=== PATIENT | female | born 1935 | race Caucasian/White ===

== ENCOUNTER 2016-09-27 21:28 | Observation (INO) ==
[2016-09-27] MEDS ORDERED: INSULIN LISPRO 1 UNIT/0.01 ML UNIT SQ ONE ×2 (21:49→23:23)
[2016-09-27] MEDS ORDERED: ONDANSETRON 4 MG/2 ML VIAL IV ONE (21:50)
[2016-09-27] MEDS ORDERED: 0.9 % SODIUM CHLORIDE 1,000 ML IV ONE (21:50)
[2016-09-27 22:44] LABS: Basophils # (Auto) 0 K/mcL (0.0-0.3); Basophils % (Auto) 0.9 % (0.0-2.0); Eosinophils # (Auto) 0.1 K/mcL (0.0-0.7); Granulocytes % (Auto) 53.4 % (38.0-78.0); Lymphocytes # (Auto) 0.9 K/mcL (1.5-4.8); Lymphocytes % (Auto) 28.6 % (15.5-49.0); Mean Cell Volume 103.1 fL (80.0-100.0); Mean Corpuscular HGB Conc 33.8 g/dL (31.0-36.0); Mean Corpuscular Hemoglobin 34.9 pg (26.0-34.0); Monocytes # (Auto) 0.4 K/mcL (0.1-0.9); Monocytes % (Auto) 13.1 % (1.0-12.0); Platelet Count 127 K/mcL (140-440); RBC 2.79 M/mcL (4.00-5.20); Red Cell Distribution Width 15.3 % (11.5-14.5)
[2016-09-27 22:57] LABS: ALT/SGPT 19 U/l (0-40); Albumin 3.4 gm/dL (3.2-5.2); Albumin/Globulin Ratio 0.9 (1.0-2.3); Alkaline Phosphatase 108 U/L (39-117); Amylase 92 U/L (28-100); Blood Urea Nitrogen 25 mg/dl (8-23); Lipase 130 U/L (7-60)
[2016-09-28] MEDS ORDERED: INSULIN LISPRO 1 UNIT/0.01 ML UNIT SQ ONE ×3 (00:24→21:44)
[2016-09-28] MEDS ORDERED: cefTRIAXone 1 GM VIAL IM ONE (01:18)
--- NOTE | 2016-09-28 01:54 | Emergency Department Note ---
General Adult HPI - General Chief complaint: Blood Sugar Problem Stated complaint: Elevated Blood Sugar Time Seen by Provider: 09/27/16 21:48 Source: patient, old records reviewed Mode of arrival: wheelchair Limitations: no limitations - History of Present Illness HPI Narrative: 81-year-old female sent over from [facility] for a fingerstick blood sugar over 500. It was 395 after 20 units of Lantus and 44 units of Humalog with dinner. Denies dysuria or shortness of breath fever chills nausea vomiting diarrhea. Patient has baseline dementia and is slow speech but is able to give me some reasonable history and review of systems - Related Data Home Medications Medication Instructions Recorded Confirmed Pantoprazole [Protonix] 40 mg PO BID 04/25/15 09/28/16 Acetaminophen [Tylenol] 325 mg PO Q6HP PRN 04/26/15 09/28/16 Bisacodyl [Dulcolax] 10 mg GA DAILYP PRN 04/26/15 09/28/16 Docusate Sodium [Stool Softener] 100 mg PO DAILY 04/26/15 09/28/16 clopidogrel 75 mg tablet 75 mg PO QDAY tab 07/04/15 09/28/16 rosuvastatin 20 mg tablet 20 mg PO .QOD tab 07/04/15 09/28/16 venlafaxine ER 150 mg 150 mg PO QAM 07/04/15 09/28/16 capsule,extended release 24 hr Carvedilol [Coreg] 25 mg PO BID 04/09/16 09/28/16 Erythromycin Ophth Oint [Ilotycin 1 dose LEFT EYE TID 04/09/16 09/28/16 Ophth Oint] Ferrous Sulfate [Feosol] 325 mg PO DAILY 04/09/16 09/28/16 Furosemide [Lasix] 20 mg PO DAILY 04/09/16 09/28/16 Ipratropium/Albuterol [Duoneb] 3 mg IH QIDP PRN 04/09/16 09/28/16 Losartan [Cozaar] 50 mg PO DAILY 04/09/16 09/28/16 Nitrofurantoin Sr [Macrobid] 100 mg PO DAILY 04/09/16 09/28/16 Peg 400/Hypromellose/Glycerin 15 ml OP PRN PRN 04/09/16 09/28/16 [Artificial Tears Drops] hydrALAZINE [Apresoline] 10 mg PO DAILYP PRN 04/09/16 09/28/16 sitaGLIPtin [Januvia] 50 mg PO DAILY 04/09/16 09/28/16 Magnesium Hydroxide [Milk of 30 ml PO PRN PRN 04/18/16 09/28/16 Magnesia] Na Phos,M-B/Na Phos,Di-Ba [Fleets 1 dose GA PRN PRN MDD 1 04/18/16 09/28/16 Adult] Spironolactone [Aldactone] 25 mg PO DAILY 09/28/16 09/28/16 Previous Rx's Medication Instructions Recorded Ezetimibe [Zetia] 10 mg PO DAILY 30 Days 05/02/15 Acetaminophen [Tylenol] 650 mg PO Q4-6HP PRN #0 tablet 04/14/16 tramadol 50 mg tablet 50 mg PO Q6H PRN #60 tab 04/21/16 insulin glargine 100 unit/mL See Label Instructions SUB-Q 09/25/16 subcutaneous solution .COMPLEX #1 ml insulin lispro 100 unit/mL See Label Instructions SUB-Q .QAC 09/25/16 subcutaneous solution #1 ml Allergies Allergy/AdvReac Type Severity Reaction Status Date / Time ciprofloxacin Allergy Unknown Unknown Verified 08/27/16 12:42 Latex, Natural Rubber Allergy Unknown Unknown Verified 08/27/16 12:42 shellfish derived Allergy Unknown Unknown Verified 08/27/16 12:42 Review of Systems All systems ED: reviewed and negative except as stated. Past Medical History - Past Medical History Attestation: Yes: The following information was validated with the patient. Medical history: Reports: coronary artery disease, CVA, dementia, diabetes, GI bleed, hyperlipidemia, hypertension, osteoporosis, renal disease, other Surgical history ED: Reports: appendectomy, tonsillectomy, other - Social History smoking status: Never smoker Alcohol use: Reports: None Drug use: Reports: none Physical Exam Normocephalic atraumatic. Conjunctiva clear sclerae white and anicteric. No nasal discharge or congestion. Oropharynx is pink and moist. Neck is supple without lymphadenopathy or thyromegaly. Heart is regular rate and rhythm no murmurs appreciated. Lungs are clear to auscultation bilaterally without wheezes rales rhonchi or respiratory distress. Abdomen soft nontender nondistended. No peritoneal signs or guarding. +2 pedal edema bilaterally with chronic venous stasis changes. Posterior radial pulse. She is alert and oriented however very slow speech. Reasonable historian, however it is not clear whether she is fully aware of her surroundings or what is going on. - General Limitations: no limitations Course Vital Signs Temperature 97.8 F 09/27/16 21:29 Pulse Rate 53 L 09/27/16 21:29 Respiratory Rate 16 09/27/16 21:29 Blood Pressure 137/64 09/27/16 21:29 Pulse Oximetry (%) 95 09/27/16 21:29 Temperature 97.8 F 09/27/16 21:29 Pulse Rate 51 L 09/28/16 02:55 Respiratory Rate 20 09/28/16 02:55 Blood Pressure 155/66 09/28/16 02:55 Pulse Oximetry (%) 100 09/28/16 02:55 Medical Decision Making - Lab Data Lab results reviewed: Yes I reviewed the patient's lab results. Result diagrams: 09/27/16 22:00 09/27/16 22:00 Lab Results 09/27/16 09/27/16 Range/Units 22:00 22:00 WBC 3.0 L (4.5-11.0) K/mcL RBC 2.79 L (4.00-5.20) M/mcL Hgb 9.7 L (12.0-15.0) g/dL Hct 28.7 L (36.0-48.0) % MCV 103.1 H (80.0-100.0) fL MCH 34.9 H (26.0-34.0) pg MCHC 33.8 (31.0-36.0) g/dL RDW 15.3 H (11.5-14.5) % Plt Count 127 L (140-440) K/mcL MPV 7.6 (7.4-10.4) fL Gran % 53.4 (38.0-78.0) % Lymph % (Auto) 28.6 (15.5-49.0) % Sherman % (Auto) 13.1 H (1.0-12.0) % Eos % (Auto) 4.0 (0.0-7.0) % Baso % (Auto) 0.9 (0.0-2.0) % Gran # 1.6 L (1.8-8.0) K/mcL Lymph # 0.9 L (1.5-4.8) K/mcL Sherman # 0.4 (0.1-0.9) K/mcL Eos # 0.1 (0.0-0.7) K/mcL Baso # 0 (0.0-0.3) K/mcL Sodium 138 (133-145) mmol/L Potassium 4.9 (3.3-5.1) mmol/L Chloride 101 (96-108) mmol/L Carbon Dioxide 24 (22-30) mmol/L Anion Gap 13.0 (8-16) BUN 25 H (8-23) mg/dl Creatinine 1.2 H (0.6-1.1) mg/dl GFR Calculation 43 Glucose 384 H (70-105) mg/dL Calcium 9.1 (8.6-10.4) mg/dl Total Bilirubin 0.5 (0.0-1.0) mg/dL AST 33 (0-37) U/l ALT 19 (0-40) U/l Alkaline Phosphatase 108 (39-117) U/L Total Protein 7.3 (5.9-8.4) gm/dL Albumin 3.4 (3.2-5.2) gm/dL Globulin 3.9 H (2.2-3.7) gm/dL Albumin/Globulin Ratio 0.9 L (1.0-2.3) Amylase 92 (28-100) U/L Lipase 130 H (7-60) U/L urinalysis dipstick [id number] shows large amount of leukocytes positive nitrites and small amount of blood. 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 So initially we treated her with 10 units of insulin subcutaneous and orally rehydrated. Repeat blood sugars were still in the 300s so we gave her another 7 units. On recheck she was still elevated and we gave her 10 more. Laboratory shows chronic pancytopenia. Additionally she has mild pancreatitis and a UTI. She is given Rocephin as she is allergic to fluoroquinolones. As we are unable to get her blood sugars under control he was felt she needed to come into the hospital for IV hydration, antibiotics and aggressive insulin management of hyperglycemia. I discussed her case with Dr. adhikari who agreed to accept the patient Disposition: Xfer As Inpt ([facility]) Condition: Fair
[2016-09-28] MEDS ORDERED: 0.9 % SODIUM CHLORIDE 1,000 ML IV ONE (03:38)
[2016-09-28] MEDS ORDERED: IPRATROPIUM/ALBUTEROL 3 ML AMPUL.NEB NEB PRN ×2 (03:38→12:11)
[2016-09-28] MEDS ORDERED: DEXTROSE 50% 50 ML VIAL IV PRN (03:38)
[2016-09-28] MEDS ORDERED: 0.9 % SODIUM CHLORIDE 10 ML SYRINGE IV PRN (03:38)
[2016-09-28] MEDS ORDERED: NALOXONE HCL 0.4 MG/ML VIAL IV PRN (03:38)
[2016-09-28] MEDS ORDERED: ACETAMINOPHEN 325 MG TABLET PO PRN (03:38)
[2016-09-28] MEDS ORDERED: ONDANSETRON 4 MG/2 ML VIAL IV PRN (03:38)
[2016-09-28] MEDS ORDERED: ALTEPLASE 2 MG VIAL IV PRN (03:38)
--- NOTE | 2016-09-28 03:58 | Internal Med History&Physical ---
Medical - H&P: [facility] Patient information: Note initiated : 09/28/16 at 3:53 am Service Date, if different from initiated Date: [] Patient: Cyndie Levine 81 y/o F admitted on 09/28/16 for Elevated Blood Sugar. Chief Complaint: [] History of present illness: Ms. Levine is a 81 year old female who lives in [facility], h/o dementia was sent over by [facility] to the ER today because of elevated glucose level > 500. 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 The patient vj any acute issues, notes that she was told something was wrong with her blood and therefore is here. She denies any acute symptoms. Does admit to polyuria and hypogastric abdominal pain, but unable to tell me more about it. The pt seems to have had a h/o cva and has been a [facility] resident due to her functional status and dementia. In the ER the patient BS was treated with insulin, to which it did not respond well. She was noted to have a UTI and was therefore admitted to the hospital for further management. Review of systems: CONSTITUTIONAL: No weight loss, fever, chills, weakness or fatigue. HEENT: Eyes: No visual loss, blurred vision, double vision or yellow sclerae. Ears, Nose, Throat: No hearing loss, sneezing, congestion, runny nose or sore throat. SKIN: No rash or itching. CARDIOVASCULAR: No chest pain, chest pressure or chest discomfort. No palpitations or edema. RESPIRATORY: No shortness of breath, cough or sputum. GASTROINTESTINAL: No anorexia, nausea, vomiting or diarrhea. mild hypogastric abdominal pain. GENITOURINARY: Present Burning on urination. No Blood in urine, Present foul smelling urine NEUROLOGICAL: No headache, dizziness, syncope, . No change in bowel or bladder control. MUSCULOSKELETAL: No muscle, back pain, joint pain or stiffness. HEMATOLOGIC: No bleeding or bruising. No enlarged nodes PSYCHIATRIC: No history of depression or anxiety. ENDOCRINOLOGIC: No reports of sweating, cold or heat intolerance. No polyuria or polydipsia. ALLERGIES: No history of hives, eczema or rhinitis., hives, eczema or rhinitis. Medical - H&P: [facility] Medical history: Medical History Dehydration (Acute) Hyperglycemia due to type 2 diabetes mellitus (Acute) Pancreatitis (Acute) Cystitis, acute (Chronic 08/10/13) Pancytopenia (Chronic) Anemia (Acute) Contusion, hip (Acute) Delirium due to general medical condition (Acute) Dementia (Acute) GI bleed (Acute) Hypernatremia (Acute) Hypokalemia (Acute) Lactic acidosis (Acute) Melanotic stools (Acute) Melena (Acute) Pancytopenia (Acute) Sepsis (Acute) Sepsis (Acute) UTI (urinary tract infection) (Acute) Urinary tract infection (Acute) Urinary tract infection (Acute) Urinary tract infection (Acute) Anemia (Chronic) Anemia (Chronic) Back pain (Chronic 10/19/14) CAD (coronary artery disease) (Chronic) CVA (cerebral infarction) (Chronic) Cellulitis, leg (Chronic 09/04/14) Chronic UTI (Chronic) Chronic kidney disease, stage II (mild) (Chronic) Chronic kidney disease, stage III (moderate) (Chronic) Dementia (Chronic) Dementia (Chronic) Diabetes mellitus, type II (Chronic) Encounter for preventive health examination (Chronic) Fracture of finger, closed (Chronic) Gastritis (Chronic 09/04/14) History of echocardiogram (Chronic 05/30/15) 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) History of urinary tract infection (Chronic) Hyperlipidemia (Chronic) Hypertension, essential (Chronic) Hypertensive renal disease (Chronic) Neutropenia (Chronic) Osteopenia (Chronic 10/19/14) Proteinuria (Chronic) Thrombocytopenia (Chronic) Toe pain (Chronic) Urinary incontinence (Chronic 07/07/14) Acute renal failure (Resolved) Complicated urinary tract infection (Resolved) Encephalopathy acute (Resolved) Hematochezia (Resolved) SIRS (systemic inflammatory response syndrome) (Resolved) Sepsis (Resolved) UTI (urinary tract infection) with pyuria (Resolved) Surgical history: Past Surgical History H/O brain surgery (Acute) History of appendectomy (Acute) History of esophagogastroduodenoscopy (Acute 04/07/13) History of intestinal surgery (Acute) Hx of tonsillectomy (Acute) Hx of ventricular shunt (Acute) History of adenoidectomy (Chronic) Pertinent family history: unable to review. Social history: [facility] resident. Medical - H&P: Meds Home Medications Medication Instructions Recorded Confirmed Type Pantoprazole [Protonix] 40 mg PO BID 04/25/15 09/28/16 History Acetaminophen [Tylenol] 325 mg PO Q6HP PRN 04/26/15 09/28/16 History Bisacodyl [Dulcolax] 10 mg NM DAILYP PRN 04/26/15 09/28/16 History Docusate Sodium [Stool Softener] 100 mg PO DAILY 04/26/15 09/28/16 History Ezetimibe [Zetia] 10 mg PO DAILY 30 Days 05/02/15 09/28/16 Rx clopidogrel 75 mg tablet 75 mg PO QDAY tab 07/04/15 09/28/16 History rosuvastatin 20 mg tablet 20 mg PO .QOD tab 07/04/15 09/28/16 History venlafaxine ER 150 mg 150 mg PO QAM 07/04/15 09/28/16 History capsule,extended release 24 hr Carvedilol [Coreg] 25 mg PO BID 04/09/16 09/28/16 History Erythromycin Ophth Oint [Ilotycin 1 dose LEFT EYE TID 04/09/16 09/28/16 History Ophth Oint] Ferrous Sulfate [Feosol] 325 mg PO DAILY 04/09/16 09/28/16 History Furosemide [Lasix] 20 mg PO DAILY 04/09/16 09/28/16 History Ipratropium/Albuterol [Duoneb] 3 mg IH QIDP PRN 04/09/16 09/28/16 History Losartan [Cozaar] 50 mg PO DAILY 04/09/16 09/28/16 History Nitrofurantoin Sr [Macrobid] 100 mg PO DAILY 04/09/16 09/28/16 History Peg 400/Hypromellose/Glycerin 15 ml OP PRN PRN 04/09/16 09/28/16 History [Artificial Tears Drops] hydrALAZINE [Apresoline] 10 mg PO DAILYP PRN 04/09/16 09/28/16 History sitaGLIPtin [Januvia] 50 mg PO DAILY 04/09/16 09/28/16 History Acetaminophen [Tylenol] 650 mg PO Q4-6HP PRN #0 tablet 04/14/16 09/28/16 Rx Magnesium Hydroxide [Milk of 30 ml PO PRN PRN 04/18/16 09/28/16 History Magnesia] Na Phos,M-B/Na Phos,Di-Ba [Fleets 1 dose NM PRN PRN MDD 1 04/18/16 09/28/16 History Adult] tramadol 50 mg tablet 50 mg PO Q6H PRN #60 tab 04/21/16 09/28/16 Rx insulin glargine 100 unit/mL See Label Instructions SUB-Q 09/25/16 Rx subcutaneous solution .COMPLEX #1 ml insulin lispro 100 unit/mL See Label Instructions SUB-Q .QAC 09/25/16 Rx subcutaneous solution #1 ml Spironolactone [Aldactone] 25 mg PO DAILY 09/28/16 09/28/16 History Allergies Allergy/AdvReac Type Severity Reaction Status Date / Time ciprofloxacin Allergy Unknown Unknown Verified 08/27/16 12:42 Latex, Natural Rubber Allergy Unknown Unknown Verified 08/27/16 12:42 shellfish derived Allergy Unknown Unknown Verified 08/27/16 12:42 Medical - H&P: Exam - Constitutional Vitals: Temp Pulse Resp BP Pulse Ox 97.8 F 51 L 20 155/66 100 09/27/16 21:29 09/28/16 02:55 09/28/16 02:55 09/28/16 02:55 09/28/16 02:55 Exam: GENERAL: The patient is a well-developed, well-nourished in no apparent distress. Is alert and oriented x1 self. VITAL SIGNS: Reviewed and as noted elsewhere. HEENT: Head is normocephalic and atraumatic. Extraocular muscles are intact. Pupils are equal, round, and reactive to light. Nares appeared normal. Mouth is without lesions. Mucous membranes are dry. NECK: Normal to inspection, Supple, No lymphadenopathy or thyromegaly. LUNGS: Air entry equal on both sides, no wheezing, crackles or rhonchi noted. No accessory muscles of respiration HEART: Regular rate and rhythm normal, S1 and S2 heard, no Gallop, S3 or Rub Noted, No Gross murmur heard. ABDOMEN: Soft, and nondistended. Positive bowel sounds. No hepatosplenomegaly was noted. Mild hypogastric tenderness present. EXTREMITIES: No cyanosis, clubbing, rash, lesions or edema. NEUROLOGIC: Cranial nerves II through XII are grossly intact. Motor generalized weakness 3/5 in all extremities PSYCHIATRIC: flat affect, not combative, confusion present. SKIN: No ulceration or wounds noted, No jaundice, No rash noted. Medical - H&P: Reslt - Labs CBC & Chem 7: 09/27/16 22:00 09/27/16 22:00 Medical - H&P: A/P (1) Hyperglycemia due to type 2 diabetes mellitus Current visit: Yes Status: Acute - Narrative A/P Narrative: Hyperglycemia due to Uncontrolled DM UTI hj/o ESBL Ecoli h/o CVA Dementia HTN HLD Treat Hyperglycemia with IV fluids and Insulin no e/o DKA. ABG reviewed, ph 7.44 /39/77/27 Resume patients home medications when able Pt was a poor stick USG guided Peripheral line placed Given ESBL in the past, pt in contact isolation, Start on ERtabpenum IV q 24 hrs WIll need midline central line access so we can continue IV antibiotics in NH. OT/ PT / ST eval DVT hep sq Code dnr as per NH documentation. Social History - Tobacco smoking status: Never smoker - Alcohol alcohol intake frequency: does not drink
[2016-09-28] MEDS: ERTAPENEM 1 GM in 0.9 % SODIUM CHLORIDE 50 ML IV SCH (04:05)
[2016-09-28] MEDS: 0.9 % SODIUM CHLORIDE 1,000 ML IV SCH ×3 (04:05→20:45)
[2016-09-28 05:07] LABS: Basophils # (Auto) 0 K/mcL (0.0-0.3); Basophils % (Auto) 0.3 % (0.0-2.0); Eosinophils # (Auto) 0.1 K/mcL (0.0-0.7); Eosinophils % (Auto) 4.3 % (0.0-7.0); Granulocytes % (Auto) 50.3 % (38.0-78.0); Lymphocytes # (Auto) 1.1 K/mcL (1.5-4.8); Lymphocytes % (Auto) 34.2 % (15.5-49.0); Mean Cell Volume 105.3 fL (80.0-100.0); Mean Corpuscular HGB Conc 33.6 g/dL (31.0-36.0); Mean Corpuscular Hemoglobin 35.4 pg (26.0-34.0); Monocytes # (Auto) 0.4 K/mcL (0.1-0.9); Monocytes % (Auto) 10.9 % (1.0-12.0); Platelet Count 125 K/mcL (140-440); Red Cell Distribution Width 16.1 % (11.5-14.5)
[2016-09-28 05:15] LABS: ALT/SGPT 17 U/l (0-40); Albumin 3.4 gm/dL (3.2-5.2); Albumin/Globulin Ratio 0.9 (1.0-2.3); Alkaline Phosphatase 109 U/L (39-117); Bilirubin,Direct < 0.2 mg/dL (0.0-0.3); Blood Urea Nitrogen 23 mg/dl (8-23); Gamma Glutamyl Transpeptidase 115 U/L (5-36); Magnesium 1.8 mg/dL (1.6-2.5); Uric Acid 6.9 mg/dL (2.5-8.0)
[2016-09-28] MEDS: INSULIN LISPRO 1 UNIT/0.01 ML UNIT SQ SCH ×4 (07:18→21:42)
[2016-09-28] MEDS: 0.9 % SODIUM CHLORIDE 10 ML SYRINGE IV SCH ×3 (07:18→21:39)
[2016-09-28] MEDS ORDERED: PANTOPRAZOLE 40 MG TABLET PO SCH (07:30)
--- NOTE | 2016-09-28 08:26 | XRay Report ---
CLINICAL INFORMATION: Uncontrolled diabetes COMPARISON: 04/09/2016 FINDINGS: Moderate cardiomegaly has increased slightly. Mediastinum is unremarkable. The pulmonary vessels are now mildly distended and there is mild interstitial edema throughout both lungs. There are no infiltrates or definite effusions. 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
[2016-09-28] MEDS: HEPARIN 5,000 UNIT/ML VIAL SQ SCH ×2 (08:36→21:42)
[2016-09-28] MEDS ORDERED: POLYETHYLENE GLYCOL 400 OP PRN (12:11)
[2016-09-28] MEDS ORDERED: GLYCERIN OP PRN (12:11)
[2016-09-28] MEDS ORDERED: HYPROMELLOSE OP PRN (12:11)
[2016-09-28] MEDS ORDERED: traMADol 50 MG TABLET PO PRN (12:11)
[2016-09-28] MEDS ORDERED: INSULIN GLARGINE, HUMAN 1 UNIT/0.01 ML SQ ONE (13:29)
[2016-09-28] MEDS: INSULIN GLARGINE, HUMAN 1 UNIT/0.01 ML SQ SCH ×2 (14:00→21:42)
[2016-09-28] MEDS: CARVEDILOL 12.5 MG TABLET PO SCH (17:02)
[2016-09-28] MEDS: PANTOPRAZOLE 40 MG TABLET PO SCH (17:02)
[2016-09-28] MEDS ORDERED: SIMVASTATIN 40 MG TABLET PO SCH (21:00)
[2016-09-29] MEDS: 0.9 % SODIUM CHLORIDE 1,000 ML IV SCH ×3 (04:49→22:50)
[2016-09-29 05:29] LABS: Basophils # (Auto) 0 K/mcL (0.0-0.3); Basophils % (Auto) 0.6 % (0.0-2.0); Eosinophils # (Auto) 0.1 K/mcL (0.0-0.7); Granulocytes % (Auto) 53.1 % (38.0-78.0); Lymphocytes % (Auto) 33.2 % (15.5-49.0); Mean Corpuscular HGB Conc 33.8 g/dL (31.0-36.0); Mean Corpuscular Hemoglobin 35.5 pg (26.0-34.0); Monocytes # (Auto) 0.3 K/mcL (0.1-0.9); Monocytes % (Auto) 10.1 % (1.0-12.0); Platelet Count 107 K/mcL (140-440); RBC 2.49 M/mcL (4.00-5.20); Red Cell Distribution Width 16.1 % (11.5-14.5)
[2016-09-29 06:28] LABS: ALT/SGPT 16 U/l (0-40); Albumin 3.1 gm/dL (3.2-5.2); Albumin/Globulin Ratio 0.9 (1.0-2.3); Alkaline Phosphatase 92 U/L (39-117); Bilirubin,Direct < 0.2 mg/dL (0.0-0.3); Blood Urea Nitrogen 18 mg/dl (8-23); Gamma Glutamyl Transpeptidase 108 U/L (5-36); Magnesium 1.8 mg/dL (1.6-2.5); Uric Acid 6.4 mg/dL (2.5-8.0)
[2016-09-29] MEDS: ERTAPENEM 1 GM in 0.9 % SODIUM CHLORIDE 50 ML IV SCH ×2 (06:44→09:19)
[2016-09-29] MEDS: 0.9 % SODIUM CHLORIDE 10 ML SYRINGE IV SCH ×3 (06:44→22:59)
[2016-09-29] MEDS: INSULIN LISPRO 1 UNIT/0.01 ML UNIT SQ SCH ×4 (08:23→21:28)
[2016-09-29] MEDS: PANTOPRAZOLE 40 MG TABLET PO SCH ×2 (08:28→17:58)
[2016-09-29] MEDS: CARVEDILOL 12.5 MG TABLET PO SCH ×2 (08:33→18:08)
[2016-09-29] MEDS: SPIRONOLACTONE 25 MG TABLET PO SCH (09:26)
[2016-09-29] MEDS: LOSARTAN 50 MG TABLET PO SCH (09:27)
[2016-09-29] MEDS: CLOPIDOGREL 75 MG TABLET PO SCH (09:28)
[2016-09-29] MEDS: EZETIMIBE 10 MG TABLET PO SCH (09:30)
[2016-09-29] MEDS: sitaGLIPtin 50 MG TABLET PO SCH (09:30)
[2016-09-29] MEDS: VENLAFAXINE 150 MG CAP.XL.24H PO SCH (09:30)
[2016-09-29] MEDS: FUROSEMIDE 20 MG TABLET PO SCH (09:31)
[2016-09-29] MEDS: INSULIN GLARGINE, HUMAN 1 UNIT/0.01 ML SQ SCH ×2 (09:33→22:51)
[2016-09-29] MEDS: HEPARIN 5,000 UNIT/ML VIAL SQ SCH ×2 (09:34→22:51)
--- NOTE | 2016-09-29 11:33 | XRay Report ---
HISTORY: Reason for Exam:fever and elevated blood sugar level FINDINGS: The heart is mildly enlarged but magnified by portable technique. This is a chronic stable finding. The lungs are clear. Is no evidence of adenopathy or pleural effusion. A shunt catheter extends across right chest wall. IMPRESSION: Stable mild cardiomegaly and no acute abnormality is detected Interpreted and Authenticated by: Davion Daniel 09/29/16
--- NOTE | 2016-09-29 12:19 | Internal Med Progress Note ---
Medical - PN: Subj Patient information: Note initiated : 09/29/16 at 12:19 pm Service Date, if different from initiated Date: [] Patient: Cyndie Levine a 81 y/o F admitted on 09/28/16 for Elevated Blood Sugar. Chief Complaint: [] Interval history: 09/28 Ms. Levine is a 81 year old female who lives in [facility], h/o dementia was sent over by [place] to the ER today because of elevated glucose level > 500. 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 The patient vj any acute issues, notes that she was told something was wrong with her blood and therefore is here. She denies any acute symptoms. Does admit to polyuria and hypogastric abdominal pain, but unable to tell me more about it. The pt seems to have had a h/o cva and has been a [place] resident due to her functional status and dementia. In the ER the patient BS was treated with insulin, to which it did not respond well. She was noted to have a UTI and was therefore admitted to the hospital for further management. 09/29 Pt seen examined, pleasantly demented, plan was for her to be d/c back to snf, however she developed a fever this AM, her urine culture came back positive for proteus. At this time, will continue IV ertapenum, She has a Midline in place, repeat CXR, check renal USG. Pt denies any acute overnight events. Pertinent ROS: Denies headache, dizziness Denies chest pain, palpitations Denies cough or shortness of breath Denies abdominal pain, nausea or vomiting. - Constitutional Vitals: Vital Signs Temp Pulse Resp BP Pulse Ox 100.5 F H 73 30 H 160/78 91 09/29/16 08:00 09/29/16 09:00 09/29/16 09:00 09/29/16 08:00 09/29/16 09:00 Period Temp Pulse Resp BP Sys/Claudio Pulse Ox Last 24 Hr 98.3 F-100.5 F 61-73 16-30 117-160/52-78 91-94 Intake and Output 09/28/16 09/29/16 09/29/16 21:59 05:59 13:59 Intake Total 2140 / 2140 1250 / 1250 200 / 200 Output Total 2 / Balance 2138 / 2138 1248 / 1248 199 / 199 Weight 204 lb 8 oz Intake & Output: Intake & Output 09/28/16 09/29/16 09/29/16 21:59 05:59 13:59 Intake Total 2140 / 2140 1250 / 1250 200 / 200 Output Total Balance 2138 / 2138 1248 / 1248 199 / 199 Weight 204 lb 8 oz Intake: IV 1000 / 1000 1000 / 1000 Sodium Chloride 0.9% 1, 1000 / 1000 1000 / 1000 000 ml @ 125 mls/hr IV . Q8H JOSE Rx#:[id number] Oral 1140 / 1140 250 / 250 200 / 200 Output: # of times incontinent of urine Other: Meal Dinner Breakfast Percent of Meal Consumed 100% 100% Feeding Ability Total Assistance # Voids 1 Exam: Constitutional; Afebrile, cooperative, alert, not in distress. Eyes- No icterus, Pupils equal, reactive, No periorbital swelling Ears- Ext ear normal, hearing hard to conversation. Neck- Midline trachea, supple Respiratory system: Air Entry equal on both sides, No crackles or wheezing, no rhonchi. CVS- Rate rhythm regular, S1,S2 heard, no gallop, no rub. 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 Medical - PN: Obj Da - Labs CBC & Chem 7: 09/29/16 04:08 09/29/16 04:08 Labs: Abnormal Lab Results 09/29/16 09/29/16 09/28/16 04:08 04:08 04:05 WBC 3.1 L RBC 2.49 L Hgb 8.8 L Hct 26.1 L MCV 105.0 H MCH 35.5 H RDW 16.1 H Plt Count 107 L MPV Gran # 1.6 L Lymph # 1.0 L Carbon Dioxide 20 L Glucose 217 H 183 H GGT 108 H 115 H Albumin 3.1 L Albumin/Globulin Ratio 0.9 L 0.9 L Triglycerides 248 H 197 H 09/28/16 04:05 WBC 3.2 L RBC 2.80 L Hgb 9.9 L Hct 29.5 L MCV 105.3 H MCH 35.4 H RDW 16.1 H Plt Count 125 L MPV 7.1 L Gran # 1.6 L Lymph # 1.1 L Carbon Dioxide Glucose GGT Albumin Albumin/Globulin Ratio Triglycerides Meds: Medications Acetaminophen (Tylenol) 650 mg PO Q6HP PRN PRN Reason: PAIN/FEVER > 101 Albuterol/Ipratropium (Duoneb) 3 ml NEB Q6HRT PRN PRN Reason: Shortness Of Breath Or Wheezing Albuterol/Ipratropium (Duoneb) 3 ml NEB QIDP PRN PRN Reason: Bronchospasm Alteplase, Recombinant (Cathflo) 2 mg IV PRN PRN PRN Reason: Line Patency Carvedilol (Coreg) 25 mg PO BIDCC [facility] Last Admin: 09/29/16 08:33 Dose: 25 mg Clopidogrel Bisulfate (Plavix) 75 mg PO QDAY [facility] Last Admin: 09/29/16 09:28 Dose: 75 mg Dextrose (Dextrose 50%) 0 ml IV UD PRN PRN Reason: Hypoglycemia Diagnostic Test (Pha) (Accu-Chek) 1 each FS ACHS [facility] Last Admin: 09/29/16 11:34 Dose: 1 each Ezetimibe (Zetia) 10 mg PO DAILY [facility] Last Admin: 09/29/16 09:30 Dose: 10 mg Furosemide (Lasix) 20 mg PO DAILY [facility] Last Admin: 09/29/16 09:31 Dose: 20 mg Heparin Sodium (Porcine) (Heparin) 5,000 unit SQ Q12 [facility] Last Admin: 09/29/16 09:34 Dose: Not Given Heparin Sodium (Porcine) (Heparin Flush) 2 ml IV Q12 [facility] Last Admin: 09/29/16 09:35 Dose: Not Given Sodium Chloride (Sodium Chloride 0.9%) 1,000 mls @ 125 mls/hr IV .Q8H [facility] Last Admin: 09/29/16 12:14 Dose: Not Given Ertapenem 1 gm/ Sodium (Chloride) 50 mls @ 100 mls/hr IV Q24H [facility] Last Admin: 09/29/16 09:19 Dose: 100 mls/hr Insulin Glargine (Lantus) 20 unit SQ HS [facility] Last Admin: 09/28/16 21:42 Dose: 20 unit Insulin Glargine (Lantus) 75 unit SQ DAILY [facility] Last Admin: 09/29/16 09:33 Dose: 75 unit Insulin Human Lispro (Humalog) 0 unit SQ ACHS [facility] PRN Reason: Protocol Last Admin: 09/29/16 11:51 Dose: 9 unit Losartan Potassium (Cozaar) 50 mg PO DAILY [facility] Last Admin: 09/29/16 09:27 Dose: 50 mg Naloxone HCl (Narcan) 0.1 mg IV Q2MIN PRN PRN Reason: Opiate Reversal Ondansetron HCl (Zofran) 4 mg IV Q6HP PRN PRN Reason: Nausea And Vomiting Pantoprazole Sodium (Protonix) 40 mg PO BIDAC [facility] Last Admin: 09/29/16 08:28 Dose: 40 mg Peg 400/Hypromellose /Glycerin [ Artificial Tears] Eye Drops 1 dose OP PRN PRN PRN Reason: Dry Eyes Simvastatin (Zocor) 40 mg PO Q48@2100 [facility] Last Admin: 09/28/16 21:43 Dose: 40 mg Sitagliptin Phosphate (Januvia) 50 mg PO DAILY [facility] Last Admin: 09/29/16 09:30 Dose: 50 mg Sodium Chloride (Saline Flush) 10 ml IV Q8 [facility] Last Admin: 09/29/16 06:44 Dose: Not Given Sodium Chloride (Saline Flush) 10 ml IV UD PRN PRN Reason: FLUSH Spironolactone (Aldactone) 25 mg PO DAILY [facility] Last Admin: 09/29/16 09:26 Dose: 25 mg Tramadol HCl (Ultram) 50 mg PO Q6HP PRN PRN Reason: Pain Venlafaxine HCl (Effexor Xr) 150 mg PO QAM [facility] Last Admin: 09/29/16 09:30 Dose: 150 mg Medical - PN: A/P - Time Spent With Patient Total time spent is greater than 50% in coordination of care (as documented) at patient's floor/unit and/or counseling patient: (1) Hyperglycemia due to type 2 diabetes mellitus Status: Acute Current Visit: Yes - Narrative A/P Narrative: Hyperglycemia due to Uncontrolled DM: On lantus, 75 untis AM, 20 qhs, and high dose of sliding scale, glucose still high (sliding scale changed today) UTI hj/o ESBL Ecoli: Initially thought to be Ecoli given previous cultures, but it seems pt has Proteus in Urine, await sensitivities. Continue ertapenum. Await sensitivities. h/o CVA, Dementia : Pleaantly demented, no delirium while inpatient, HTN: BP well controlled, on home dose of coreg, lasix, aldactone. HLD: On home meds. OT/ PT / ST eval DVT hep sq Code dnr as per [facility] documentation. Medical - PN: Qual - VTE Deep Vein Thrombosis/Pulmonary Embolism Present on Admission: No
--- NOTE | 2016-09-29 15:13 | Ultrasound Report ---
History: Urinary tract infection with Proteus Findings: The right kidney is 4.4 x 5.0 x 13.2 cm left measures 5.0 x 5.2 x 12.3 cm. There is no radiographic evidence of pyelonephritis. No mass, cyst, calculus or hydronephrosis are present. Doppler shows flow urine through both ureters into the bladder. The bladder is well distended with contains a small amount of echogenic debris layering posteriorly. This is consistent with a urinary tract infection. There are multiple round hypoechoic nodules in the spleen. Largest is 1.3 x 1.5 x 1.6 cm. On the prior ultrasound done on 04/09/16 one hyperechoic nodule, measuring 1 cm was identified. The others may have been present but not documented since it was ordered specifically as a renal ultrasound study. Impression: Anatomically normal kidneys Small amount of debris in the urinary bladder consistent with bladder infection Hyperechoic nodules in the spleen. 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 Interpreted and Authenticated by: Davion Daniel 09/29/16
[2016-09-29 17:07] LABS: Appearance,Urine HAZY; Bacteria,Urine 0 /hpf (0); Bilirubin,Urine NEG (NEG); Color,Urine YELLOW; Glucose,Urine (UA) NEGATIVE (NEG); Leukocyte Esterase,Urine 75 /uL (NEG); Mucus,Urine FEW /hpf (0); Nitrate,Urine NEG (NEG); Protein,Urine NEG (NEG); Specific Gravity,Urine 1.012 (1.000-1.035); Urine Blood 0.03 mg/dL (<0.03); Urine RBC 3 /hpf (0-1); Urine Squamous Epithelial Cell 14 /hpf (0-4); Urine WBC 68 /hpf (0-4); Urobilinogen,Urine NEG (NEG)
[2016-09-30] MEDS: 0.9 % SODIUM CHLORIDE 1,000 ML IV SCH ×2 (04:32→07:42)
[2016-09-30] MEDS: 0.9 % SODIUM CHLORIDE 10 ML SYRINGE IV SCH (05:34)
[2016-09-30 05:39] LABS: Basophils # (Auto) 0 K/mcL (0.0-0.3); Basophils % (Auto) 0.3 % (0.0-2.0); Eosinophils # (Auto) 0.1 K/mcL (0.0-0.7); Lymphocytes # (Auto) 1.2 K/mcL (1.5-4.8); Lymphocytes % (Auto) 31.7 % (15.5-49.0); Mean Cell Volume 105.1 fL (80.0-100.0); Mean Corpuscular HGB Conc 33.9 g/dL (31.0-36.0); Mean Corpuscular Hemoglobin 35.6 pg (26.0-34.0); Monocytes # (Auto) 0.4 K/mcL (0.1-0.9); Platelet Count 99 K/mcL (140-440); RBC 2.49 M/mcL (4.00-5.20); Red Cell Distribution Width 15.8 % (11.5-14.5)
[2016-09-30 06:20] LABS: ALT/SGPT 14 U/l (0-40); Albumin 2.9 gm/dL (3.2-5.2); Albumin/Globulin Ratio 0.8 (1.0-2.3); Alkaline Phosphatase 84 U/L (39-117); Bilirubin,Direct < 0.2 mg/dL (0.0-0.3); Blood Urea Nitrogen 15 mg/dl (8-23); Gamma Glutamyl Transpeptidase 103 U/L (5-36); Magnesium 1.7 mg/dL (1.6-2.5); Uric Acid 6.4 mg/dL (2.5-8.0)
[2016-09-30] MEDS: PANTOPRAZOLE 40 MG TABLET PO SCH (07:40)
[2016-09-30] MEDS: CARVEDILOL 12.5 MG TABLET PO SCH (07:41)
[2016-09-30] MEDS: INSULIN LISPRO 1 UNIT/0.01 ML UNIT SQ SCH ×2 (07:46→11:25)
[2016-09-30] MEDS: EZETIMIBE 10 MG TABLET PO SCH (09:15)
[2016-09-30] MEDS: CLOPIDOGREL 75 MG TABLET PO SCH (09:16)
[2016-09-30] MEDS: SPIRONOLACTONE 25 MG TABLET PO SCH (09:16)
[2016-09-30] MEDS: FUROSEMIDE 20 MG TABLET PO SCH (09:16)
[2016-09-30] MEDS: LOSARTAN 50 MG TABLET PO SCH (09:16)
[2016-09-30] MEDS: sitaGLIPtin 50 MG TABLET PO SCH (09:17)
[2016-09-30] MEDS: VENLAFAXINE 150 MG CAP.XL.24H PO SCH (09:17)
[2016-09-30] MEDS: INSULIN GLARGINE, HUMAN 1 UNIT/0.01 ML SQ SCH (09:17)
[2016-09-30] MEDS: ERTAPENEM 1 GM in 0.9 % SODIUM CHLORIDE 50 ML IV SCH (09:17)
[2016-09-30] MEDS: HEPARIN 5,000 UNIT/ML VIAL SQ SCH (09:18)
--- NOTE | 2016-09-30 10:44 | Discharge Summary ---
Medical - DS: Prov Patient information: Note initiated : 09/30/16 at 10:39 am Service Date, if different from initiated Date: [] Patient: Cyndie Levine 81 y/o F admitted on 09/28/16 for Elevated Blood Sugar. Chief Complaint: [] Date of admission: 09/28/16 03:27 Discharge date: 09/30/16 Primary care physician: [f_Reg Prim Care Provider] Admitting clinician: Mahamed Bernard Discharging clinician: Mahamed Bernard Medical - DS: Meds - Discharge Medications Prescriptions: Cefuroxime Axetil [Cefuroxime] 250 mg PO BID #16 tablet Active and Home Medications: Home Medications Acetaminophen [Tylenol] 325 mg PO Q6HP PRN 04/26/15 [History Confirmed 09/28/16 Last Taken Unknown] Bisacodyl [Dulcolax] 10 mg [place] DAILYP PRN 04/26/15 [History Confirmed 09/28/16 Last Taken 07/29/15] Docusate Sodium [Stool Softener] 100 mg PO DAILY 04/26/15 [History Confirmed 08/15 Last Taken 09/27/16 08:00] Ezetimibe [Zetia] 10 mg PO DAILY 30 Days 05/02/15 [Rx Confirmed 09/28/16 Last Taken 09/27/16 08:00] clopidogrel 75 mg tablet 75 mg PO QDAY tab 07/04/15 [History Confirmed Last Taken 09/27/16 08:00] rosuvastatin 20 mg tablet 20 mg PO QOD tab 07/04/15 [History Confirmed Last Taken 09/26/16 21:00] venlafaxine ER 150 mg capsule,extended release 24 hr 150 mg PO QAM 07/04/15 [ History Confirmed 09/28/16 Last Taken 09/27/16 08:00] Carvedilol [Coreg] 25 mg PO BID 04/09/16 [History Confirmed 09/28/16 Last Taken 09/27/16 17:00] Erythromycin Ophth Oint [Ilotycin Ophth Oint] 1 dose LEFT EYE TID 04/09/16 [ History Confirmed 09/28/16 Last Taken 09/27/16 08:00] Ferrous Sulfate [Feosol] 325 mg PO DAILY 04/09/16 [History Confirmed 09/28/16 Last Taken 09/27/16 08:00] Furosemide [Lasix] 20 mg PO DAILY 04/09/16 [History Confirmed 09/28/16 Last Taken 09/27/16 08:00] Ipratropium/Albuterol [Duoneb] 3 mg IH QIDP PRN 04/09/16 [History Confirmed 08/15 Last Taken Unknown] Losartan [Cozaar] 50 mg PO DAILY 04/09/16 [History Confirmed 09/28/16 Last Taken 09/27/16 08:00] Nitrofurantoin Sr [Macrobid] 100 mg PO DAILY 04/09/16 [History Confirmed Last Taken 09/27/16 08:00] Peg 400/Hypromellose/Glycerin [Artificial Tears Drops] 15 ml OP PRN PRN [History Confirmed 09/28/16 Last Taken Unknown] hydrALAZINE [Apresoline] 10 mg PO DAILYP PRN 04/09/16 [History Confirmed Last Taken Unknown] sitaGLIPtin [Januvia] 50 mg PO DAILY 04/09/16 [History Confirmed 09/28/16 Last Taken 09/27/16 08:00] Acetaminophen [Tylenol] 650 mg PO Q4-6HP PRN #0 tablet 04/14/16 [Rx Confirmed Last Taken Unknown] Magnesium Hydroxide [Milk of Magnesia] 30 ml PO PRN PRN 04/18/16 [History Confirmed 09/28/16 Last Taken Unknown] Na Phos,M-B/Na Phos,Di-Ba [Fleets Adult] 1 dose NJ PRN PRN MDD 1 04/18/16 [ History Confirmed 09/28/16 Last Taken Unknown] tramadol 50 mg tablet 50 mg PO Q6H PRN #60 tab 04/21/16 [Rx Confirmed 09/28/16 Last Taken Unknown] Albuterol Sulfate 2.5 mg IH Q4-6HP PRN 09/28/16 [History Confirmed 09/28/16 Last Taken Unknown] Insulin Glargine, Human [Lantus] 20 unit SQ HS 09/28/16 [History Confirmed 09/28 Last Taken 09/27/16 21:00] Insulin Glargine, Human [Lantus] 75 units SUB-Q QAM 09/28/16 [History Confirmed 09/28/16 Last Taken 09/27/16 08:00] Insulin Lispro [HumaLOG] 30 unit SQ 1130,1630 09/28/16 [History Confirmed Last Taken 09/27/16 16:30] Insulin Lispro [Humalog] 25 units SUB-Q 0700 09/28/16 [History Confirmed Last Taken 09/27/16 07:00] Pantoprazole Sodium [Protonix] 40 mg PO BID 09/28/16 [History Confirmed Last Taken 09/27/16 08:00] Spironolactone [Aldactone] 25 mg PO DAILY 09/28/16 [History Confirmed 09/28/16 Last Taken 09/27/16 08:00] Medical - DS: Hosp Hospital course: Ms. Levine is a 81 year old female who lives in [facility], h/o dementia was sent over by [place] to the ER today because of elevated glucose level > 500. 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 The patient denies any acute issues, notes that she was told something was wrong with her blood and therefore is here. She denies any acute symptoms. Does admit to polyuria and hypogastric abdominal pain, but unable to tell me more about it. The pt seems to have had a h/o cva and has been a [place] resident due to her functional status and dementia. In the ER the patient BS was treated with insulin, to which it did not respond well. She was noted to have a UTI and was therefore admitted to the hospital for further management. UTI: Abnl UA< urine culture positive for Proteus, Initially treated with ertapenum due to h/o ESBL ecoli, the patient antibiotics were descalated to ertapenum due to her having proteus sensitive to cephalosporins. Hyperglycemia: Due to uncontrolled DM, pt on high dose of insulin at the [place], 75 units AM and 20 units qhs of lantus. Pt was also on lispro. I have changed the patients lispro schedule to sliding scale, high dose protocol. This has kept the glucose well controlled. If the patient glucose were to decrease in the future. she will benefit from a medium dose protocol. The rest of the patients condition was unchanged, No other changes in her home med list made. She was back at baseline at the time of discharge. Discharge diagnosis: Hyperglycemia, UTI. - Time Spent with Patient Total time spent providing and/or coordinating discharge services: Greater than 30 minutes Medical - DS: Exam - Constitutional Vitals: Vital Signs Temp Pulse Pulse Resp BP Pulse Ox 09/30/16 08:00 98.1 F 56 L 22 123/55 94 09/30/16 07:44 56 L 90 09/30/16 04:00 98.1 F 65 28 H 153/68 92 09/30/16 00:00 98.3 F 66 32 H 120/55 91 09/29/16 20:00 32 H 09/29/16 19:32 98.4 F 70 32 H 128/55 92 09/29/16 16:00 100.1 F H 66 30 H 138/70 09/29/16 12:00 98.8 F 62 28 H 133/67 94 Intake and Output 09/29/16 09/30/16 09/30/16 21:59 05:59 13:59 Intake Total 300 / 300 1270 / 1270 Output Total 2 / 2 2 / 2 1 / Balance -2 / -2 298 / 298 1269 / 1269 Intake: IV 1000 / 1000 Sodium Chloride 0.9% 1, 1000 / 1000 000 ml @ 125 mls/hr IV . 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9 GFR Calculation 61 Glucose 123 H Uric Acid 6.4 Calcium 8.2 L Phosphorus 2.9 Magnesium 1.7 Total Bilirubin 0.6 Direct Bilirubin < 0.2 GGT 103 H AST 32 ALT 14 Alkaline Phosphatase 84 Lactate Dehydrogenase 247 Total Protein 6.4 Albumin 2.9 L Globulin 3.5 Albumin/Globulin Ratio 0.8 L Triglycerides 174 H Urine Color Yellow Urine Appearance Hazy Urine pH 5.0 Ur Specific [place] 1.012 Urine Protein Neg Urine Glucose (UA) Negative Urine Ketones Neg Urine Occult Blood 0.03 A Urine Nitrate Neg Urine Bilirubin Neg Urine Urobilinogen Neg Ur Leukocyte Esterase 75 A Urine RBC 3 H Urine WBC 68 H Ur Squamous Epith Cells 14 H Urine Bacteria 0 Urine Mucus Few Ur Culture Indicated? No Medical - DS: A/P - Patient/Caregiver Discharge Instructions Activity: as per physical therapy, increase activity as tolerated Diet: Cardiac, Consistent Carbohydrate Additional Instructions: Follow up with PCP in 7-10 days. Please make sure that the PCP can evaluate her finger stick glucose Antibiotics for 8 more days. Go to the ER if worsening condition or any new concerns. Prescriptions: Cefuroxime Axetil [Cefuroxime] 250 mg PO BID #16 tablet - Problem Maintenance (1) Hyperglycemia due to type 2 diabetes mellitus Status: Acute Qualifiers: Diabetes mellitus intermediate insulin use: with revival clerk use Qualified Code( s): E11.65 - Type 2 diabetes mellitus with hyperglycemia; Z79.4 - nursing home ( current) use of insulin - Follow up Plan Follow up with: Shaggy Meza MD [Primary Care Provider] - Disposition: Xfer SNF Prognosis: Fair Rehab Potential: Fair I certify that the patient requires SNF services: Yes Overall status at discharge: patient is progressing back to baseline Medical - DS: Qual - VTE Deep Vein Thrombosis/Pulmonary Embolism Present on Admission: No
== END 2016-09-30 13:15 ==
LOC: ED-MC 21:28 → MEDSUR 21:28
PROVIDERS: ADMIT Internal Medicine; ATTEND Internal Medicine

== ENCOUNTER 2017-06-15 20:32 | Inpatient (IN) ==
[2017-06-15] MEDS ORDERED: 0.9 % SODIUM CHLORIDE 1,000 ML IV SCH (21:00)
--- NOTE | 2017-06-15 21:15 | Emergency Department Note ---
Altered Mental Status HPI - General Chief Complaint: Altered Mental Status Stated Complaint: Altered LOC Time Seen by Provider: 06/15/17 21:04 Mode of arrival: EMS - History of Present Illness HPI Narrative: Patient is [facility] from the [facility] with a history of being seen earlier , she did have anemia, hyperkalemia, and UTI symptoms and she had very limited response, basically obtunded and responsive to pain only. Situation was explained to the son who does have Poa and his name is Berny Levine. He was aware of the situation and with the [facility] staff later this evening to determine that she was doing worse. They called him and according to his information. He authorized them to do whatever they felt was the right thing to do at the time. So they sent her back to the hospital. I had a discussion with the son at this time and he did wish her to be admitted to the hospital for IV fluids and IV antibiotics, she does have a DNR, he is aware of her kidney status as well as her general overall condition and he is aware that she is in serious in condition. Nevertheless, he endorsed having admitted to hospital at this time.the [facility] is uncomfortable taking care of her and thus I called the hospital doctor to have her admitted at this point for #1.. Urinary tract infection.. #2. Diabetes mellitus with hyperglycemia. #3. Dehydration.. #4. Dementia. And worsening mental status. At this point. Family is aware that she may not recover from this condition.. complaint: altered mental status - Related Data Home Medications Medication Instructions Recorded Confirmed Bisacodyl [Dulcolax] 10 mg NM DAILYP PRN 04/26/15 01/28/17 Docusate Sodium [Stool Softener] 100 mg PO DAILY 04/26/15 01/28/17 clopidogrel 75 mg tablet 75 mg PO QDAY tab 07/04/15 01/28/17 rosuvastatin 20 mg tablet 20 mg PO QOD tab 07/04/15 01/28/17 venlafaxine ER 150 mg 150 mg PO QAM 07/04/15 01/28/17 capsule,extended release 24 hr Carvedilol [Coreg] 25 mg PO BID 04/09/16 01/28/17 Ferrous Sulfate [Feosol] 325 mg PO DAILY 04/09/16 01/28/17 Furosemide [Lasix] 20 mg PO DAILY 04/09/16 01/28/17 Ipratropium/Albuterol [Duoneb] 3 mg IH QIDP PRN 04/09/16 01/28/17 Losartan [Cozaar] 50 mg PO DAILY 04/09/16 01/28/17 hydrALAZINE [Apresoline] 10 mg PO DAILYP PRN 04/09/16 01/28/17 sitaGLIPtin [Januvia] 50 mg PO DAILY 04/09/16 01/28/17 Magnesium Hydroxide [Milk of 30 ml PO PRN PRN 04/18/16 01/28/17 Magnesia] Albuterol Sulfate 2.5 mg IH Q4-6HP PRN 09/28/16 01/28/17 Spironolactone [Aldactone] 25 mg PO DAILY 09/28/16 01/28/17 Previous Rx's Medication Instructions Recorded Acetaminophen [Tylenol] 650 mg PO Q4-6HP PRN #0 tab 04/14/16 tramadol 50 mg tablet 50 mg PO Q6H PRN #60 tab 04/28/17 cranberry conc-vit 1 each PO QAM #2880 ml 06/15/17 S-lntkaun-ZXL-bromelain 3,875 mg/30 mL oral liquid dextran 70-hypromellose eye drops 1 drp OPHTHALMIC 4-6XD PRN #15 ml 06/15/17 polyethylene glycol 3350 17 17 g PO QDAY #119 g 06/15/17 gram/dose oral powder sennosides 8.6 mg tablet 8.6 mg PO BID PRN #1 tab 06/15/17 Allergies Allergy/AdvReac Type Severity Reaction Status Date / Time ciprofloxacin Allergy Unknown Unknown Verified 06/15/17 09:11 Latex, Natural Rubber Allergy Unknown Unknown Verified 06/15/17 09:11 shellfish derived Allergy Unknown Unknown Verified 06/15/17 09:11 Review of Systems Limitations: ROS unobtainable due to patients medical condition Past Medical History - Past Medical History Source: nursing notes reviewed Medical history: Reports: coronary artery disease, CVA, dementia, diabetes, GI bleed, hyperlipidemia, hypertension, osteoporosis, renal disease, 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 She has respiratory rate of 28, her O2 sats are still 95%.. She does not respond to pain or verbal stimuli. Breath sounds are equal on both sides. Abdomen appears soft and nontender, she has some anasarca with edema of the upper extremities, left lower leg is wrapped and he is cautioned with from. She is not moving any of her extremities in a purposeful fashion, I do have report that she withdrew to to painful stimuli. Limitations: altered mental status, physical limitation Course Vital Signs Temperature 99.5 F H 06/15/17 20:32 Pulse Rate 105 H 06/15/17 20:32 Respiratory Rate 26 H 06/15/17 20:32 Blood Pressure 216/91 06/15/17 20:32 Pulse Oximetry (%) 96 06/15/17 20:32 Temperature 99.5 F H 06/15/17 20:32 Pulse Rate 105 H 06/15/17 20:37 Respiratory Rate 28 H 06/15/17 20:37 Blood Pressure 216/91 06/15/17 20:37 Pulse Oximetry (%) 96 06/15/17 20:37 Altered Mental Status - [facility] Narrative Medical decision making narrative: impression is urinary tract infection. #2. Hyperkalemia. #3. Dementia with worsening mental status and comatose condition. #4. DNR status. #5. Anemia. #6.. Renal insufficiency. Disposition Pt seen by PRINCIPAL CYBER ENGINEER/PA only: No Clinical Impression: Altered mental status, Chronic kidney disease, stage III (moderate), UTI ( urinary tract infection) Condition: Serious Referrals: Shaggy eMza MD [Primary Care Provider] -
--- NOTE | 2017-06-15 21:31 | Internal Med History&Physical ---
Medical - H&P: HPI Patient information: Note initiated : 06/15/17 at 9:25 pm Service Date, if different from initiated Date: [] Patient: Cyndie Levine 81 y/o F admitted on for Altered LOC. Chief Complaint: [] History of present illness: Ms. Levine is a 81 year old woman with a history of dementia, who resides in a group home. She was seen in the emergency room earlier today, and diagnosed with UTI, hyperkalemia. She was obtunded at that time, and the ER docs reviewed with family that she was only a limited code, and the family agreed to send her back to the group home with IV fluids and IV antibiotics, but no other aggressive care. Apparently she clinically deteriorated at the group home and the group home staff was uncomfortable keeping her there, so she was sent back to the emergency room this evening. Patient is now completely unresponsive. The son was again contacted by telephone, and he requested that the patient be admitted to see if the patient would improve with IV fluids and antibiotics and closer monitoring here. The son did review with Dr. Jensen that the patient had a DNR status. The patient is currently unresponsive and unable to participate any history. The family was not at the bedside at the time of her admission. I did speak with her son, Berny Levine, after she was admitted, to review her critical condition. He agreed with current management, but with not doing invasive or critical care. Medical History Anemia (Acute) Contusion, hip (Acute) Dehydration (Acute) Delirium due to general medical condition (Acute) Dementia (Acute) GI bleed (Acute) Hyperglycemia due to type 2 diabetes mellitus (Acute) Hypernatremia (Acute) Hypokalemia (Acute) Lactic acidosis (Acute) Melanotic stools (Acute)--S/P EGD WITH GASTRITIS, CONTINUE PPI THERAPY FOR NOW AND F/U WITH PCP. Melena (Acute) Pancreatitis (Acute) Pancytopenia (Acute) Sepsis (Acute) Urinary tract infection (Acute) ESBL Ecoli on ertapenem Back pain (Chronic 10/19/14) CAD (coronary artery disease) (Chronic) CVA (cerebral infarction) (Chronic) Mild cognitive delay Cellulitis, leg (Chronic 09/04/14) Chronic UTI (Chronic) Chronic kidney disease, stage III (moderate) (Chronic) most recent s.creat is 1.0 which equals to egfr of 54ml/min per MDRD equation s.creat now at baseline was upto 1.6 when her lisinopril was increased to 40mg po daily, improved and at baseline since this was stopped Dementia (Chronic) Diabetes mellitus, type II (Chronic) 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) Hyperlipidemia (Chronic) Hypertension, essential (Chronic) Neutropenia (Chronic) Osteopenia (Chronic 10/19/14) Pancytopenia (Chronic) Proteinuria (Chronic) Thrombocytopenia (Chronic) Urinary incontinence (Chronic 07/07/14) Acute renal failure (Resolved) Encephalopathy acute (Resolved) Hematochezia (Resolved) SIRS (systemic inflammatory response syndrome) (Resolved) Surgical History H/O brain surgery (Acute) X2 clipping aneurysms with stroke History of appendectomy (Acute) History of esophagogastroduodenoscopy (Acute 04/07/13) History of intestinal surgery (Acute) Repair of disembowelment with gangarene, 2nd surgery for bowel obstruction with adhesions Hx of tonsillectomy (Acute) Hx of ventricular shunt (Acute) For hydrocephalus History of adenoidectomy (Chronic) Medication List albuterol sulfate 2.5 mg IH Q4-6HP PRN bisacodyl 10 mg SD DAILYP PRN carvedilol 25 mg PO BID clopidogrel 75 mg PO QDAY docusate sodium 100 mg PO DAILY erythromycin 1 dose LEFT EYE TID ferrous sulfate 325 mg PO DAILY furosemide 20 mg PO DAILY insulin glargine (Lantus)? 30 units every morning, 35 units every at bedtime SUB-Q insulin lispro (Humalog) 25 u, 30 u, 35 u SUB-Q .QAC; administer within 15 minutes before dinner or no later than immediately following the meal ipratropium-albuterol 0.5 mg-3 mg(2.5 mg base)/3 mL 3 mg IH QIDP PRN losartan 50 mg PO DAILY magnesium hydroxide 30 mL PO PRN PRN peg [id number]-vvcwdfbd 1-0.2-0.2 % 15 mL OP PRN PRN rosuvastatin 20 mg PO QOD sitagliptin 50 mg PO DAILY spironolactone 25 mg PO DAILY tramadol 50 mg PO Q6H PRN venlafaxine ER 150 mg PO QAM MiraLAX 17 g daily Senna 8.6 mg p.o. twice daily Allergies/Adverse Reactions ciprofloxacin Allergy (Unknown, Verified 01/28/17 11:35) Unknown Latex, Natural Rubber Allergy (Unknown, Verified 01/28/17 11:35) Unknown shellfish derived Allergy (Unknown, Verified 01/28/17 11:35) Unknown Family History Unknown Atherosclerosis of coronary artery Type 2 diabetes mellitus Cerebrovascular accident Father Essential hypertension 80's Mother Essential hypertension 80's Social History This patient lives in a group home. She was unable to give any history about habits. Chart indicates no tobacco and no alcohol use. Medical - H&P: Meds Home Medications Medication Instructions Recorded Confirmed Type Bisacodyl [Dulcolax] 10 mg SD DAILYP PRN 04/26/15 06/16/17 History Docusate Sodium [Stool Softener] 100 mg PO DAILY 04/26/15 06/16/17 History clopidogrel 75 mg tablet 75 mg PO QDAY tab 07/04/15 06/16/17 History rosuvastatin 20 mg tablet 20 mg PO QOD tab 07/04/15 06/16/17 History venlafaxine ER 150 mg 150 mg PO QAM 07/04/15 06/16/17 History capsule,extended release 24 hr Carvedilol [Coreg] 25 mg PO BID 04/09/16 06/16/17 History Ferrous Sulfate [Feosol] 325 mg PO DAILY 04/09/16 06/16/17 History Furosemide [Lasix] 20 mg PO DAILY 04/09/16 06/16/17 History Ipratropium/Albuterol [Duoneb] 3 mg IH QIDP PRN 04/09/16 06/16/17 History Losartan [Cozaar] 50 mg PO DAILY 04/09/16 06/16/17 History sitaGLIPtin [Januvia] 50 mg PO DAILY 04/09/16 06/16/17 History Magnesium Hydroxide [Milk of 30 ml PO PRN PRN 04/18/16 06/16/17 History Magnesia] Albuterol Sulfate 2.5 mg IH Q4-6HP PRN 09/28/16 06/16/17 History Spironolactone [Aldactone] 25 mg PO DAILY 09/28/16 06/16/17 History tramadol 50 mg tablet 50 mg PO Q6H PRN #60 tab 04/28/17 06/16/17 Rx cranberry conc-vit 1 each PO QAM #2880 ml 06/15/17 06/16/17 Rx Z-lhbxxza-KOR-bromelain 3,875 mg/30 mL oral liquid dextran 70-hypromellose eye drops 1 drp OPHTHALMIC 4-6XD PRN #15 ml 06/15/17 Rx polyethylene glycol 3350 17 17 g PO QDAY #119 g 06/15/17 06/16/17 Rx gram/dose oral powder sennosides 8.6 mg tablet 8.6 mg PO BID PRN #1 tab 06/15/17 06/16/17 Rx Dextran 70/Hypromellose 1 gtt BOTH EYES PRN PRN 06/16/17 06/16/17 History [Artificial Tears] Duoneb 1 unit IH Q4-8HP PRN 06/16/17 06/16/17 History Humalog 30 units DAILY 06/16/17 06/16/17 History Humalog 35 units DAILY 06/16/17 06/16/17 History Humalog See Protocol SQ ACHS 06/16/17 06/16/17 History Insulin Glargine, Human [Lantus] 75 units SQ BID 06/16/17 06/16/17 History Insulin Lispro [Humalog] 25 units SQ DAILY 06/16/17 06/16/17 History Allergies Allergy/AdvReac Type Severity Reaction Status Date / Time ciprofloxacin Allergy Unknown Unknown Verified 06/15/17 09:11 Latex, Natural Rubber Allergy Unknown Unknown Verified 06/15/17 09:11 shellfish derived Allergy Unknown Unknown Verified 06/15/17 09:11 Medical - H&P: Exam - Constitutional Vitals: Temp Pulse Resp BP Pulse Ox 99.5 F H 105 H 28 H 216/91 96 06/15/17 20:32 06/15/17 20:37 06/15/17 20:37 06/15/17 20:37 06/15/17 20:37 On exam, the patient was unresponsive and had a very rapid respiratory rate, upwards of 40. She had very loud snoring respirations. Head: Normocephalic, atraumatic. Ears: TMs and canals are clear. Eyes: Pupils are mid dilated and fixed. Anicteric. Pharynx: Difficult to examine. Mucosa appears dry. Neck: No obvious JVD, thyromegaly, lymphadenopathy, bruits. Cardiac exam: Appears to show distant regular rate and rhythm, although was very difficult to hear over her very loud respirations. Lungs: Patient has very loud and rapid snoring respirations. Lung arzola appear clear, but again exam is very noisy. Abdomen: Is soft without obvious tenderness. Bowel sounds are normoactive. Extremities: She has about 1+ edema diffusely. Neurologic: The patient is obtunded, and seems to only have reflexive reactions to painful stimuli. Plantar stimulation appears to cause upgoing toes. Medical - H&P: Reslt - Labs CBC & Chem 7: 06/16/17 04:28 06/16/17 04:28 Labs: June 15: CBC: White blood cell count 11,500, hemoglobin 7.8, hematocrit 23, 200,000, granulocyte count 8100 next Chemistries: Sodium 145, potassium 6.0, chloride 107, CO2 22, anion gap 16, BUN 49, creatinine 2.2, glucose 346 Hemoglobin A1c 6.6% Calcium 8.5, AST 50, ALT 32, albumin 3.1 Urinalysis: Shows 500 leukocyte esterase, 25 red blood cells, greater than 180 white blood cells, 11 squamous epithelial cells, many bacteria Chest x-ray: Shows moderate cardiomegaly, no acute disease. Medical - H&P: A/P (1) Sepsis Current visit: No Status: Acute (2) Lactic acidosis Current visit: No Status: Acute (3) UTI (urinary tract infection) Current visit: No Status: Acute (4) Dementia Current visit: No Status: Acute (5) Hyperglycemia due to type 2 diabetes mellitus Current visit: No Status: Acute - Narrative A/P Narrative: #1. Neurologic. Patient presents in an obtunded state, and appears to have had a probable catastrophic neurologic event. She is currently unresponsive. Her current status was reviewed with her son, Berny Levine. He agreed that he would like to follow her POLST form, and continue with only supportive care. It was explained to him that she appears to be preterminal. -Patient's son, Berny, reports he will notify other family members, but he does not plan on driving down from [place] this evening. -The patient's rapid breathing makes her appear uncomfortable, although I suspect she is not aware of it. Morphine and Ativan as needed are ordered to use as needed to help keep her comfortable. 2. Infectious disease. Patient presents with signs and symptoms likely consistent with recurrent urinary tract infection. -Blood and urine cultures were sent earlier today. She is being treated empirically with Rocephin and IV fluids. 3. Renal. Patient presents with acute on chronic renal failure. She is hyperkalemic. She is also hyperglycemic. -Insulin is ordered, which should help with the potassium issue. IV fluids may help with renal function. 4. CODE STATUS: Patient has a limited code directive, and will accept antibiotics and IV fluids only. 5. DVT prophylaxis: Heparin was ordered initially, but given the patient's apparent preterminal state, this will be discontinued. Case management consult regarding transition to comfort care versus hospice care. Approximately 55 minutes was spent this evening, reviewing the patient's case with the ER MD, reviewing old records and current test results, examining the patient, and writing orders.
[2017-06-15] MEDS ORDERED: DOCUSATE SODIUM 100 MG CAPSULE PO PRN (22:31)
[2017-06-15] MEDS ORDERED: cefTRIAXone 1 GM in DEXTROSE 5% IN WATER 50 ML IV SCH (22:31)
[2017-06-15] MEDS ORDERED: 0.45 % SODIUM CHLORIDE 1,000 ML IV SCH (22:31)
[2017-06-15] MEDS ORDERED: ONDANSETRON 4 MG/2 ML VIAL IV PRN (22:31)
[2017-06-15] MEDS ORDERED: CALCIUM CARBONATE 500 MG TAB.CHEW CHEWED PRN (22:31)
[2017-06-15] MEDS ORDERED: MAGNESIUM HYDROXIDE 30 ML ORAL.SUSP PO PRN (22:31)
[2017-06-15] MEDS ORDERED: NALOXONE HCL 0.4 MG/ML VIAL IV PRN (22:31)
[2017-06-15] MEDS ORDERED: ACETAMINOPHEN 325 MG TABLET PO PRN (22:31)
[2017-06-15] MEDS ORDERED: ALBUTEROL SULFATE 2.5 MG/3 ML NEBULIZER NEB PRN (22:31)
[2017-06-15] MEDS ORDERED: DEXTROSE 50% 50 ML VIAL IV PRN (22:31)
[2017-06-15] MEDS ORDERED: DEXTROSE 31 GM ORAL.SUSP PO PRN (22:31)
[2017-06-15] MEDS: 0.9 % SODIUM CHLORIDE 10 ML SYRINGE IV SCH (23:15)
[2017-06-15] MEDS: LORazepam 2 MG/ML VIAL IV PRN (23:40)
[2017-06-15] MEDS ORDERED: LORazepam 2 MG/ML VIAL ONE (23:44)
[2017-06-16] MEDS: ACETAMINOPHEN 650 MG/65 ML BOTTLE IV PRN (00:57)
[2017-06-16] MEDS ORDERED: INSULIN LISPRO 1 UNIT/0.01 ML UNIT SQ ONE (01:01)
[2017-06-16 01:55] LABS: Hemoglobin A1C 6.6 % HGB (4.0-6.0)
[2017-06-16] MEDS: 0.9 % SODIUM CHLORIDE 10 ML SYRINGE IV SCH ×3 (05:33→21:14)
[2017-06-16] MEDS ORDERED: DEXTRAN BOTH EYES PRN (06:44)
[2017-06-16] MEDS ORDERED: HYPROMELLOSE OU PRN (06:44)
[2017-06-16] MEDS ORDERED: HYPROMELLOSE BOTH EYES PRN (06:44)
[2017-06-16] MEDS ORDERED: DEXTRAN OU PRN (06:44)
[2017-06-16 06:54] LABS: ALT/SGPT 40 U/l (0-40); Albumin 3.5 gm/dL (3.2-5.2); Albumin/Globulin Ratio 1.1 (1.0-2.3); Alkaline Phosphatase 83 U/L (39-117); Bilirubin,Direct < 0.2 mg/dL (0.0-0.3); Blood Urea Nitrogen 79 mg/dl (8-23); Gamma Glutamyl Transpeptidase 99 U/L (5-36); Magnesium 2.1 mg/dL (1.6-2.5)
[2017-06-16 07:45] LABS: Basophils # (Auto) 0 K/mcL (0.0-0.3); Basophils % (Auto) 0.2 % (0.0-2.0); Eosinophils # (Auto) 0 K/mcL (0.0-0.7); Eosinophils % (Auto) 0.3 % (0.0-7.0); Granulocytes % (Auto) 69.8 % (38.0-78.0); Lymphocytes % (Auto) 19.4 % (15.5-49.0); Mean Cell Volume 105.7 fL (80.0-100.0); Monocytes # (Auto) 1.6 K/mcL (0.1-0.9); Monocytes % (Auto) 10.3 % (1.0-12.0); Platelet Count 223 K/mcL (140-440); RBC 1.98 M/mcL (4.00-5.20); Red Cell Distribution Width 16.5 % (11.5-14.5)
[2017-06-16] MEDS: LORazepam 2 MG/ML VIAL IV PRN ×2 (07:59→17:32)
[2017-06-16] MEDS: INSULIN LISPRO 1 UNIT/0.01 ML UNIT SQ SCH ×2 (08:07→15:41)
[2017-06-16] MEDS ORDERED: HEPARIN 5,000 UNIT/ML VIAL SQ SCH (09:00)
--- NOTE | 2017-06-16 10:17 | Internal Med Progress Note ---
Medical - PN: Subj Patient information: Note initiated : 06/16/17 at 10:17 am Service Date, if different from initiated Date: [] Patient: Cyndie Levine 81 y/o F admitted on 06/15/17 for Altered LOC. Chief Complaint: [] Interval history: June 15, 2017: History of present illness: Ms. Levine is a 81 year old woman with a history of dementia, who resides in a half-way. She was seen in the emergency room earlier today, and diagnosed with UTI, hyperkalemia. She was obtunded at that time, and the ER docs reviewed with family that she was only a limited code, and the family agreed to send her back to the half-way with IV fluids and IV antibiotics, but no other aggressive care. Apparently she clinically deteriorated at the half-way and the half-way staff was uncomfortable keeping her there, so she was sent back to the emergency room this evening. Patient is now completely unresponsive. The son was again contacted by telephone, and he requested that the patient be admitted to see if the patient would improve with IV fluids and antibiotics and closer monitoring here. The son did review with Dr. Jensen that the patient had a DNR status. The patient is currently unresponsive and unable to participate any history. The family was not at the bedside at the time of her admission. I did speak with her son, Berny Levine, after she was admitted, to review her critical condition. He agreed with current management, but with not doing invasive or critical care. June 16: The patient has remained unresponsive since admission. T-max was 100.8. Respiratory rate is improved today, with as needed doses of morphine and Ativan. She continues to have numerous electrolyte abnormalities. Nurses are noting when they suction her, that they are getting large amounts of phlegm, but also blood clots. - Constitutional Vitals: Vital Signs Temp Pulse Resp BP Pulse Ox 98.4 F 90 20 115/73 96 06/16/17 07:28 06/16/17 07:09 06/16/17 07:28 06/16/17 07:28 06/16/17 07:28 Period Temp Pulse Resp BP Sys/Claudio Pulse Ox Last 24 Hr 98.4 F-100.8 F 90-119 16-60 115-224/49-128 89-96 Intake and Output 06/15/17 06/16/1717 21:59 05:59 13:59 Intake Total 74 / 74 65 / 65 Output Total 300 / 300 Balance -226 / -226 65 / 65 Weight 245 lb 194 lb 4.8 oz Intake & Output: Intake & Output 06/15/17 06/16/17 06/16/17 21:59 05:59 13:59 Intake Total 74 / 74 65 / 65 Output Total 300 / 300 Balance -226 / -226 65 / 65 Weight 245 lb 194 lb 4.8 oz Intake: IV 74 / 74 65 / 65 Sodium Chloride 0.9% 1,000 ml @ 74 / 74 50 mls/hr IV .Q20H [facility] Rx#: [id number] Output: Urine Catheter Amount 300 / 300 The patient remains obtunded. Pupils appear fixed. She does not appear to have corneal reflexes. Speed neck shows no obvious JVD. Cardiac exam shows regular rate and rhythm. Lungs: Respirations still appear labored, with a lot of upper airway noise, but the rest of the lung arzola sound fairly clear. Abdomen is soft without obvious tenderness. Extremities she has generalized mild edema. Neurologic exam: Patient is unresponsive. Medical - PN: Obj Da - Labs CBC & Chem 7: 06/16/17 06:54 06/16/17 04:28 Labs: Abnormal Lab Results 06/16/17 06/16/17 06/15/17 06:54 04:28 10:46 WBC 15.7 H RBC 1.98 L Hgb 7.1 L Hct 20.9 L* MCV 105.7 H MCH 36.0 H RDW 16.5 H Gran # 10.9 H [place] # (Auto) 1.6 H Sodium 149 H Potassium 6.8 H* Chloride 113 H Carbon Dioxide 20 L BUN 79 H Creatinine 1.7 H Glucose 297 H Hemoglobin A1c 6.6 H Uric Acid 10.0 H Phosphorus 2.5 L GGT 99 H AST 50 H Lactate Dehydrogenase 293 H Triglycerides 231 H June 16: Urine culture: Is growing a gram-negative silvana. X Blood cultures are negative so far. June 15: CBC: White blood cell count 11,500, hemoglobin 7.8, hematocrit 23, 200,000, granulocyte count 8100 next Chemistries: Sodium 145, potassium 6.0, chloride 107, CO2 22, anion gap 16, BUN 49, creatinine 2.2, glucose 346 Hemoglobin A1c 6.6% Calcium 8.5, AST 50, ALT 32, albumin 3.1 Urinalysis: Shows 500 leukocyte esterase, 25 red blood cells, greater than 180 white blood cells, 11 squamous epithelial cells, many bacteria Chest x-ray: Shows moderate cardiomegaly, no acute disease. Meds: Medications Acetaminophen (Tylenol) 650 mg PO Q6HP PRN PRN Reason: PAIN/FEVER > 101 Albuterol Sulfate (Ventolin) 2.5 mg NEB Q2HP PRN PRN Reason: Shortness Of Breath Calcium Carbonate/Glycine (Tums) 1,000 mg CHEWED Q4HP PRN PRN Reason: Dyspepsia Ceftriaxone Sodium (Rocephin) 1 gm IV Q24H [facility] Dextrose (Dextrose 50%) 0 ml IV UD PRN PRN Reason: Hypoglycemia Diagnostic Test (Pha) (Accu-Chek) 1 each FS [facility] Last Admin: 06/16/17 08:07 Dose: Not Given Docusate Sodium (Colace) 100 mg PO BID PRN PRN Reason: Constipation Glucose (Insta-Glucose) 15 gm PO PRN PRN PRN Reason: Hypoglycemia Sodium Chloride (Sodium Chloride 0.9%) 1,000 mls @ 50 mls/hr IV .Q20H [facility] Last Infusion: 06/15/17 23:15 Dose: 50 mls/hr Acetaminophen (Ofirmev) 650 mg in 65 mls @ 130 mls/hr IV Q6HP PRN PRN Reason: PAIN/FEVER > 101 Last Infusion: 06/16/17 06:55 Dose: Infused Insulin Human Lispro (Humalog) 0 unit SQ [facility] PRN Reason: Protocol Last Admin: 06/16/17 08:07 Dose: Not Given Lorazepam (Ativan) 1 mg IV Q2-4HP PRN PRN Reason: ANXIETY/SEDATION Last Admin: 06/16/17 07:59 Dose: 1 mg Magnesium Hydroxide (Milk Of Magnesia) 30 ml PO DAILYP PRN PRN Reason: Constipation Morphine Sulfate (Morphine) 2 mg IV Q30M PRN PRN Reason: Shortness Of Breath Or Wheezing Last Admin: 06/16/17 07:55 Dose: 2 mg Naloxone HCl (Narcan) 0.1 mg IV Q2MIN PRN PRN Reason: Opiate Reversal Dextran 70/Hypromellose [ Artificial Tears] 1 gtt BOTH EYES PRN PRN PRN Reason: Dry Eye(s) Ondansetron HCl (Zofran) 4 mg IV Q6HP PRN PRN Reason: Nausea And Vomiting Dextran 70/Hypromellose [ Artificials Tears Drops] 1 dose OU 4-6XD PRN PRN Reason: dry eye(s) Sodium Chloride (Saline Flush) 10 ml IV Q8 JOSE Last Admin: 06/16/17 05:33 Dose: Not Given Medical - PN: A/P - Time Spent With Patient Total time spent is greater than 50% in coordination of care (as documented) at patient's floor/unit and/or counseling patient: 25 - 35 minutes (1) Sepsis Status: Acute Current Visit: No (2) Lactic acidosis Status: Acute Current Visit: No (3) UTI (urinary tract infection) Status: Acute Current Visit: No (4) Dementia Status: Acute Current Visit: No (5) Hyperglycemia due to type 2 diabetes mellitus Status: Acute Current Visit: No - Narrative A/P Narrative: #1. Neurologic. Patient presents in an obtunded state, and appears to have had a probable catastrophic neurologic event. She is currently unresponsive. Her current status was reviewed with her son, Berny Levine. He agreed that he would like to follow her POLST form, and continue with only supportive care. It was explained to him that she appears to be preterminal. -The patient appears to have suffered a catastrophic neurological event. She remains unresponsive. She has numerous lab abnormalities, including anemia, and bleeding into the respiratory tract, and more than likely bleeding into her brain. -She remains DNR CODE STATUS. Continue comfort care, with morphine and Ativan. 2. Infectious disease. Patient presents with signs and symptoms likely consistent with recurrent urinary tract infection. -At this point, she appears preterminal, so I do not see any point in pursuing this. 3. Renal. Patient presents with acute on chronic renal failure. She is hyperkalemic. She is also hyperglycemic. 4. CODE STATUS: Patient has a limited code directive, but, again at this point , she does not appear salvageable. 5. DVT prophylaxis: Heparin was ordered initially, but given the patient's apparent preterminal state, this will be discontinued. Case management consult regarding transition to comfort care versus hospice care. Medical - PN: Qual - VTE Deep Vein Thrombosis/Pulmonary Embolism Present on Admission: No
[2017-06-16] MEDS ORDERED: cefTRIAXone 1 GM VIAL IV SCH (14:00)
[2017-06-17] MEDS: LORazepam 2 MG/ML VIAL IV PRN ×2 (01:20→08:50)
[2017-06-17] MEDS: ACETAMINOPHEN 650 MG/65 ML BOTTLE IV PRN (02:05)
[2017-06-17] MEDS: 0.9 % SODIUM CHLORIDE 10 ML SYRINGE IV SCH (06:29)
--- NOTE | 2017-06-17 10:14 | Internal Med Progress Note ---
Medical - PN: Subj Patient information: Note initiated : 06/17/17 at 10:14 am Service Date, if different from initiated Date: [] Patient: Cyndie Levine 81 y/o F admitted on 06/15/17 for Altered LOC. Chief Complaint: [] - Constitutional Vitals: Vital Signs Temp Pulse Resp BP Pulse Ox 98.4 F 86 24 H 133/76 96 06/16/17 07:28 06/17/17 07:13 06/17/17 07:31 06/17/17 07:31 06/17/17 07:31 Period Temp Pulse Resp BP Sys/Claudio Pulse Ox Last 24 Hr 86-88 12-60 133/76 94-97 Intake and Output 06/16/17 06/17/17 06/17/17 21:59 05:59 13:59 Intake Total 65 / 65 Output Total 1200 / 1200 1325 / 1325 Balance -1200 / -1200 -1260 / -1260 Weight 187 lb 14.4 oz Intake & Output: Intake & Output 06/16/17 06/17/17 06/17/17 21:59 05:59 13:59 Intake Total 65 / 65 Output Total 1200 / 1200 1325 / 1325 Balance -1200 / -1200 -1260 / -1260 Weight 187 lb 14.4 oz Intake: IV 65 / 65 Oral 0 / 0 Output: Urine Catheter Amount 1200 / 1200 1325 / 1325 Medical - PN: Obj Da - Labs CBC & Chem 7: 06/16/17 06:54 06/16/17 04:28 Labs: Abnormal Lab Results 06/16/17 06/16/17 06/15/17 06:54 04:28 10:46 WBC 15.7 H RBC 1.98 L Hgb 7.1 L Hct 20.9 L* MCV 105.7 H MCH 36.0 H RDW 16.5 H Gran # 10.9 H [place] # (Auto) 1.6 H Sodium 149 H Potassium 6.8 H* Chloride 113 H Carbon Dioxide 20 L BUN 79 H Creatinine 1.7 H Glucose 297 H Hemoglobin A1c 6.6 H Uric Acid 10.0 H Phosphorus 2.5 L GGT 99 H AST 50 H Lactate Dehydrogenase 293 H Triglycerides 231 H Meds: Medications Acetaminophen (Ofirmev) 650 mg in 65 mls @ 130 mls/hr IV Q6HP PRN PRN Reason: PAIN/FEVER > 101 Last Infusion: 06/17/17 02:35 Dose: Infused Lorazepam (Ativan) 1 mg IV Q2-4HP PRN PRN Reason: ANXIETY/SEDATION Last Admin: 06/17/17 08:50 Dose: 1 mg Morphine Sulfate (Morphine) 2 mg IV Q30M PRN PRN Reason: Shortness Of Breath Or Wheezing Last Admin: 06/17/17 02:42 Dose: 2 mg Sodium Chloride (Saline Flush) 10 ml IV Q8 JOSE Last Admin: 06/17/17 06:29 Dose: Not Given Medical - PN: A/P - Time Spent With Patient Total time spent is greater than 50% in coordination of care (as documented) at patient's floor/unit and/or counseling patient: (1) Sepsis Status: Acute Current Visit: No (2) Lactic acidosis Status: Acute Current Visit: No (3) UTI (urinary tract infection) Status: Acute Current Visit: No (4) Dementia Status: Acute Current Visit: No (5) Hyperglycemia due to type 2 diabetes mellitus Status: Acute Current Visit: No Medical - PN: Qual - VTE Deep Vein Thrombosis/Pulmonary Embolism Present on Admission: No
--- NOTE | 2017-06-17 12:39 | Discharge Summary ---
Medical - DS: Prov Patient information: Note initiated : 06/17/17 at 12:34 pm Service Date, if different from initiated Date: [] Patient: Cyndie Levine 81 y/o F admitted on 06/15/17 for Altered LOC. Chief Complaint: [] Date of admission: 06/15/17 22:10 Discharge date: 06/17/17 Primary care physician: Shaggy Meza Admitting clinician: Nava Richardson Consults: 06/15/17 21:06 Consult to Physician [CONS] Stat Comment: Consulting Provider: Nava Richardson Reason For Exam: Physician to Consult Attending physician on discharge: Nava Richardson Medical - DS: Meds - Discharge Medications Prescriptions: LORazepam [Lorazepam Intensol] 1 mg PO Q30M PRN #120 ml PRN Reason: Agitation morphine 2.5 mg PO Q30M PRN #120 oral.conc PRN Reason: Shortness Of Breath Or Wheezing Active and Home Medications: Discharge medications: Morphine solution, 20 mg/mL, 2.5-5 mg p.o. q. 30 minutes, as needed respiratory distress or accessory regions. Lorazepam solution 2 mg/mL. 1-2 mg p.o. every 30 minutes as needed agitation or anxiety Albuterol nebulizer treatments as needed excess wheezing Duo neb treatments every 4 hours as needed wheezing and excess secretions Previous home Medications Bisacodyl [Dulcolax] 10 mg MD DAILYP PRN 04/26/15 [History Confirmed 06/16/17 Last Taken 02/22/17 04:15] Docusate Sodium [Stool Softener] 100 mg PO DAILY 04/26/15 [History Confirmed Last Taken 06/14/17 09:00] clopidogrel 75 mg tablet 75 mg PO QDAY tab 07/04/15 [History Confirmed Last Taken 06/14/17 09:15] rosuvastatin 20 mg tablet 20 mg PO QOD tab 07/04/15 [History Confirmed Last Taken 06/13/17 20:30] venlafaxine ER 150 mg capsule,extended release 24 hr 150 mg PO QAM 07/04/15 [ History Confirmed 06/16/17 Last Taken 06/14/17 09:00] Carvedilol [Coreg] 25 mg PO BID 04/09/16 [History Confirmed 06/16/17 Last Taken 06/14/17 18:00] Ferrous Sulfate [Feosol] 325 mg PO DAILY 04/09/16 [History Confirmed 06/16/17 Last Taken 06/14/17 09:00] Furosemide [Lasix] 20 mg PO DAILY 04/09/16 [History Confirmed 06/16/17 Last Taken 06/14/17 09:00] Ipratropium/Albuterol [Duoneb] 3 mg IH QIDP PRN 04/09/16 [History Confirmed Last Taken Unknown] Losartan [Cozaar] 50 mg PO DAILY 04/09/16 [History Confirmed 06/16/17 Last Taken 06/14/17 09:00] sitaGLIPtin [Januvia] 50 mg PO DAILY 04/09/16 [History Confirmed 06/16/17 Last Taken 06/14/17 09:00] Magnesium Hydroxide [Milk of Magnesia] 30 ml PO PRN PRN 04/18/16 [History Confirmed 06/16/17 Last Taken 03/06/17 17:30] Albuterol Sulfate 2.5 mg IH Q4-6HP PRN 09/28/16 [History Confirmed 06/16/17 Last Taken 05/29/17 20:00] Spironolactone [Aldactone] 25 mg PO DAILY 09/28/16 [History Confirmed 06/16/17 Last Taken 06/14/17 09:15] tramadol 50 mg tablet 50 mg PO Q6H PRN #60 tab 04/28/17 [Rx Confirmed 06/16/17 Last Taken 06/15/17 04:30] cranberry conc-vit W-ebrzubi-VQV-bromelain 3,875 mg/30 mL oral liquid 1 each PO QAM #2880 ml 06/15/17 [Rx Confirmed 06/16/17 Last Taken 06/14/17 09:15] dextran 70-hypromellose eye drops 1 drp OPHTHALMIC 4-6XD PRN #15 ml 06/15/17 [ Rx Confirmed 06/16/17 Last Taken 04/27/17 11:30] polyethylene glycol 3350 17 gram/dose oral powder 17 g PO QDAY #119 g 06/15/17 [ Rx Confirmed 06/16/17 Last Taken 06/14/17 09:00] sennosides 8.6 mg tablet 8.6 mg PO BID PRN #1 tab 06/15/17 [Rx Confirmed Last Taken 06/14/17 18:00] Dextran 70/Hypromellose [Artificial Tears] 1 gtt BOTH EYES PRN PRN 06/16/17 [ History Confirmed 06/16/17 Last Taken 04/27/17 11:55] Duoneb 1 unit IH Q4-8HP PRN 06/16/17 [History Confirmed 06/16/17 Last Taken 12/13 03:00] Humalog 30 units DAILY 06/16/17 [History Confirmed 06/16/17 Last Taken 06/14/17 12:00] Humalog 35 units DAILY 06/16/17 [History Confirmed 06/16/17 Last Taken 06/15/17 16:30] Humalog See Protocol SQ ACHS 06/16/17 [History Confirmed 06/16/17 Last Taken 20:00] Insulin Glargine, Human [Lantus] 75 units SQ BID 06/16/17 [History Confirmed Last Taken 06/15/17 07:00] Insulin Lispro [Humalog] 25 units SQ DAILY 06/16/17 [History Confirmed 06/16/17 Last Taken 06/15/17 07:00] Medical - DS: Hosp Hospital course: June 15, 2017: History of present illness: Ms. Levine is a 81 year old woman with a history of dementia, who resides in a prison. She was seen in the emergency room earlier today, and diagnosed with UTI, hyperkalemia. She was obtunded at that time, and the ER docs reviewed with family that she was only a limited code, and the family agreed to send her back to the prison with IV fluids and IV antibiotics, but no other aggressive care. Apparently she clinically deteriorated at the prison and the prison staff was uncomfortable keeping her there, so she was sent back to the emergency room this evening. Patient is now completely unresponsive. The son was again contacted by telephone, and he requested that the patient be admitted to see if the patient would improve with IV fluids and antibiotics and closer monitoring here. The son did review with Dr. Jensen that the patient had a DNR status. The patient is currently unresponsive and unable to participate any history. The family was not at the bedside at the time of her admission. I did speak with her son, Berny Levine, after she was admitted, to review her critical condition. He agreed with current management, but with not doing invasive or critical care. June 16: The patient has remained unresponsive since admission. T-max was 100.8. Respiratory rate is improved today, with as needed doses of morphine and Ativan. She continues to have numerous electrolyte abnormalities. Nurses are noting when they suction her, that they are getting large amounts of phlegm, but also blood clots. June 17: Hospital course: This patient was admitted in an unresponsive state, and has remained comatose, with fixed pupils. She has intermittent episodes of severe tachypnea, likely due to brain injury. She was initially treated with IV fluids and IV antibiotics, but developed worsening leukocytosis, acute renal failure, and deteriorating neurologic status. It was explained to her family that I felt that she was preterminal, and that if she did not want aggressive measures at the end of her life, that we should probably move towards keeping her comfortable. Her POLST form also indicated she did not want resuscitation or aggressive measures. She is really not shown any improvement in her neurologic status since admission. Her respiratory status has improved somewhat with the use of morphine, but she still has periods of very rapid respirations. Melissa from case management did touch base with at least 2 of her sons today, and they agree with comfort care, and agree with sending her back to her prison for end- of-life care. The patient remains obtunded. Pupils appear fixed. She does not appear to have corneal reflexes. neck shows no obvious JVD. Cardiac exam shows regular rate and rhythm. Lungs: Respirations less labored, the lung arzola sound fairly clear. Abdomen is soft without obvious tenderness. Extremities she has generalized mild edema. Neurologic exam: Patient is unresponsive. I do not detect any pupillary response today. She does not respond to painful stimuli. Toes are upgoing to plantar stimulation. Assessment and plan: #1. Neurologic. Patient presents in an obtunded state, and appears to have had a probable catastrophic neurologic event. She is currently unresponsive. Her current status was reviewed with her sons. They have agreed that they would like to follow her POLST form, and continue with only supportive care. It was explained to them that she appears to be preterminal. -The patient appears to have suffered a catastrophic neurological event. She remains unresponsive. She has numerous lab abnormalities, including anemia, and bleeding into the respiratory tract, and more than likely bleeding into her brain. -She remains DNR CODE STATUS. Continue comfort care, with morphine and Ativan. -The family is agreeable to transferring her back to her long-term care facility , for end-of-life care, with meds for comfort. We did ask them if they wanted to pursue other testing, such as brain scan, to try to pinpoint a neurologic event, but they declined. 2. Infectious disease. Patient presents with signs and symptoms likely consistent with recurrent urinary tract infection. -At this point, she appears preterminal, so I do not see any point in pursuing this. 3. Renal. Patient presents with acute on chronic renal failure. She is hyperkalemic. She is also hyperglycemic. 4. CODE STATUS: Patient has a limited code directive, but, again at this point , she does not appear salvageable. #5. All of her usual oral medications have been discontinued. 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 Sepsis. ARF. UTI. - Time Spent with Patient Total time spent providing and/or coordinating discharge services: Greater than 30 minutes Medical - DS: Exam - Constitutional Vitals: Vital Signs Pulse Pulse Resp BP Pulse Ox 06/17/17 08:00 28 H 96 06/17/17 07:31 24 H 133/76 96 06/17/17 07:13 86 12 97 06/17/17 03:45 32 H 06/17/17 03:00 40 H 06/17/17 02:40 60 H 06/17/17 02:05 60 H 06/17/17 01:20 60 H 06/16/17 20:33 94 06/16/17 20:10 28 H 06/16/17 19:15 88 28 H 96 06/16/17 18:15 36 H Intake and Output 06/16/17 06/17/17 06/17/17 21:59 05:59 13:59 Intake Total 65 / 65 Output Total 1200 / 1200 1325 / 1325 Balance -1200 / -1200 -1260 / -1260 Intake: IV 65 / 65 Oral 0 / 0 Output: Urine Catheter Amount 1200 / 1200 1325 / 1325 Other: Weight 187 lb 14.4 oz Medical - DS: Data Labs on day of discharge: June 16: Urine culture: Is growing E. coli and strep agalactiae. The E. coli is resistant to almost every antibiotic tested other than cefoxitin and meropenem and Zosyn. CBC: White blood cell count 15,700, hemoglobin 7.1, hematocrit 20.9, platelets 223,000 Chemistries: Sodium 149 potassium 6.8, chloride 113, bicarb 20, BUN 79, creatinine 1.7, glucose 297 GGT is 99 AST 50 Blood cultures are negative so far. June 15: CBC: White blood cell count 11,500, hemoglobin 7.8, hematocrit 23, 200,000, granulocyte count 8100 next Chemistries: Sodium 145, potassium 6.0, chloride 107, CO2 22, anion gap 16, BUN 49, creatinine 2.2, glucose 346 Hemoglobin A1c 6.6% Lactic acid elevated at 3.7 Calcium 8.5, AST 50, ALT 32, albumin 3.1 Urinalysis: Shows 500 leukocyte esterase, 25 red blood cells, greater than 180 white blood cells, 11 squamous epithelial cells, many bacteria Chest x-ray: Shows moderate cardiomegaly, no acute disease. Medical - DS: A/P - Patient/Caregiver Discharge Instructions Activity: as instructed Diet: NPO Additional Instructions: 1. Use prescribed medications for comfort care, end-of-life care. Admit to hospice, if desired by family. Prescriptions: LORazepam [Lorazepam Intensol] 1 mg PO Q30M PRN #120 ml PRN Reason: Agitation morphine 2.5 mg PO Q30M PRN #120 oral.conc PRN Reason: Shortness Of Breath Or Wheezing - Problem Maintenance (1) Sepsis Status: Acute Qualifiers: Sepsis type: Escherichia coli Qualified Code(s): A41.51 - Sepsis due to Escherichia coli [E. coli] (2) Lactic acidosis Status: Acute (3) UTI (urinary tract infection) Status: Acute Qualifiers: Urinary tract infection type: acute cystitis Hematuria presence: without hematuria Qualified Code(s): N30.00 - Acute cystitis without hematuria (4) Dementia Status: Acute (5) Hyperglycemia due to type 2 diabetes mellitus Status: Acute Qualifiers: Diabetes mellitus correction insulin use: with correction use Qualified Code( s): E11.65 - Type 2 diabetes mellitus with hyperglycemia; Z79.4 - long-term ( current) use of insulin; Z79.4 - long-term (current) use of insulin; Z79.4 - long-term (current) use of insulin; Z79.4 - [employer] (current) use of insulin - Follow up Plan Follow up with: Shaggy Meza MD [Primary Care Provider] - Disposition: Xfer SNF Prognosis: Critical Rehab Potential: Critical I certify that the patient requires SNF services: Yes Overall status at discharge: patient is not back to baseline Medical - DS: Qual - VTE Deep Vein Thrombosis/Pulmonary Embolism Present on Admission: No
== END 2017-06-17 13:35 | DRG 871 ==
LOC: ED 20:32 → MEDSUR 22:10
PROVIDERS: ADMIT Internal Medicine; ATTEND Internal Medicine